=== PATIENT | female | born 1995 | race Caucasian/White ===

== ENCOUNTER 2021-02-04 03:21 | Emergency (ER) | payer SELFPAY ==
[2021-02-04 03:44] VITALS: BP 124/61; PULSE 68; RESP 16; TEMP 37; O2SAT 99; BMI 18.3
--- NOTE | 2021-02-04 03:48 | ED.ALLEREA ---
HPI - Allergic Reaction General Chief complaint: Allergic Reaction Stated complaint: allergic reaction Time Seen by Provider: 02/04/21 03:48 History of Present Illness HPI narrative: Patient's 25-year-old female presents today with having diffuse rash over her body. Positive history of starting on clindamycin approximately 7 days prior. Patient just finished her antibiotic. The rash was starting approximately 2 days ago. Denies any difficulty with breathing. No nausea no vomiting. No systemic complaints. No swelling. Patient is from home. No other change in her surrounding. Related Data Previous Rx's Medication Instructions Recorded diphenhydramine HCl [Benadryl] 25 mg PO Q8H 5 Days #15 cap 02/04/21 epinephrine [EpiPen 2-Benjamin] 0.3 mg IM ONCE #1 ea 02/04/21 famotidine [Pepcid] 20 mg PO BID 5 Days #10 tab 02/04/21 Allergies Allergy/AdvReac Type Severity Reaction Status Date / Time clindamycin Allergy Hives Verified 02/04/21 03:43 penicilllin Allergy Unknown hives, Uncoded 04/07/19 00:00 thorat swelling Review of Systems Review of Systems: Constitutional: No Weight loss, No Fever, No Chills, No Night Sweats, No Fatigue, No Malaise ENT/Mouth: No Hearing loss, No Ear Pain, No Nasal Congestion, No Sinus Pain, No Hoarseness, No sore throat, No Rhinorrhea, No Swallowing Difficulty Eyes: No Eye Pain, No Swelling, No Redness, No Foreign Body, No Discharge, No Vision Changes Cardiovascular: No Chest Pain, No SOB, No Dyspnea on Exertion, No Orthopnea, No Edema, No Palpitations Respiratory: No Cough, No Sputum, No Wheezing, No Smoke Exposure, No Dyspnea Gastrointestinal: No Nausea, No Vomiting, No Diarrhea, No Constipation, No abdominal Pain, No Hematochezia, No Melena Genitourinary: no irregular bleeding, No Dysuria, No Urinary Frequency, No Hematuria, No Urinary Incontinence, No Urgency, No Flank Pain, No Urinary Flow Changes, No Hesitancy Musculoskeletal: No joint pain, No Myalgias, No Joint Swelling Skin: positive diffuse rash Neuro: No Weakness, No Numbness, No Paresthesias, No Loss of Consciousness, No Dizziness, No Headache Psych: No Anxiety/Panic, No Depression, No SI/HI/AH/VH, No Social Issues, Heme/Lymph: No Bruising, No Bleeding,No Lymphadenopathy Endocrine: No Polyuria, No Polydipsia, No Temperature Intolerance [facility] Past Medical History Attestation statement: The following information was validated with the patient. Social History Social History Patient : No Physical Exam Vital Signs: Vital Signs: Last Vital Signs Temp 98.6 F 02/04/21 03:44 Pulse 68 02/04/21 03:44 Resp 16 02/04/21 03:44 BP 124/61 02/04/21 03:44 Pulse Ox 99 02/04/21 03:44 Body Mass Index 18.3 Appearance: Alert. Oriented X3. No acute distress. Eyes: Pupils equal, round and reactive to light. ENT: Pharynx normal. Neck: Normal inspection. Neck supple. No lymph nodes noted. No crepitus CVS: Normal heart rate and rhythm. Pulses normal. Normal S1 and S2 Respiratory: No respiratory distress. Breath sounds normal. No Wheezing. No rales Abdomen: Soft and nontender. No rigidity. No distention. good BS x4 Skin: positive diffuse rash that is blanching. None of the rash is over mucosal area. There is no sloughing noted Extremities: No lower extremity edema. Neurovascular intact to all extremities. No Lacerations. No Rash Neuro: Oriented X 3. No motor deficit. No sensory deficit. Moving all extermities. No slurred speech MDM - Allergic Reaction MDM Narrative Medical decision making narrative: the rash is consistent with having an allergy to clindamycin. Patient is already off the medication. Will have patient start some steroid and Pepcid. Close follow-up on an outpatient basis until symptoms resolve. An EpiPen will be prescribed as well for Extreme emergency. Currently in stable condition. Discharge Plan Discharge Clinical Impression: Allergic reaction Patient Disposition: Home, Self-Care Instructions: Antibiotic Medication Allergy (ED) Prescriptions: New famotidine [Pepcid] 20 mg tablet 20 mg PO BID 5 Days Qty: 10 RF: 0 diphenhydramine HCl [Benadryl] 25 mg capsule 25 mg PO Q8H 5 Days Qty: 15 RF: 0 epinephrine [EpiPen 2-Benjamin] 0.3 mg/0.3 mL auto-injector 0.3 mg IM ONCE Qty: 1 RF: 0 Referrals: Physician,None [Primary Care Provider] - 2 days
[2021-02-04] MEDS: predniSONE 20 MG TABLET 60 MG PO (04:04)
[2021-02-04] MEDS: Famotidine 20 MG TABLET PO (04:04)
== END 2021-02-04 04:09 | disposition home or self-care (01) ==
LOC: HO.ED 04:04
PROVIDERS: Emergency Provider Emergency Medicine Emergency Medical Services
DX: L27.0 Generalized skin eruption due to drugs and medicaments taken internally (principal); T36.8X5A Adverse effect of other systemic antibiotics, initial encounter; Y92.9 Unspecified place or not applicable
CPT/HCPCS: 99283